=== PATIENT | male | born 2000 | race Caucasian/White ===

== ENCOUNTER 2019-04-14 23:27 | Emergency (ER) | payer BC, OTHER ==
[~2019-04-14] VITALS: Ht 188 cm; Wt 100.0 kg
--- NOTE | 2019-04-14 23:40 | NUR ---
assessment made. seen by PA. orders made.
[2019-04-14] MEDS ORDERED: LIDOCAINE-MPF 1%, 5ML ONE (23:44)
[2019-04-14] MEDS ORDERED: DIPH,PERTUSS(ACELL),TET VAC/PF 0.5 ML IM-VACC ONE (23:45)
[2019-04-15] MEDS ORDERED: LIDOCAINE 1%, 2ML INFIL ONE
[2019-04-15] MEDS ORDERED: DIPH,PERTUSS(ACELL),TET VAC/PF 0.5 ML IM-VACC ONE
--- NOTE | 2019-04-15 00:27 | NUR ---
[facility] [place] LUIS MANUEL [phone]
--- NOTE | 2019-04-15 00:28 | NUR ---
PT MOVED TO ER 4 AND WIIL BE KEPT UNTIL A RIDE ARRIVES.
[2019-04-15] MEDS ORDERED: ACETAMINOPHEN 500 MG TABLET ONE (00:46)
--- NOTE | 2019-04-15 00:50 | NUR ---
Report received and care assumed. Pt resting. Medicated per JAN. Pt is A&Ox4. Moving all extremities. VSS. Awaiting ride home. Call light in reach.
[2019-04-15] MEDS ORDERED: ACETAMINOPHEN 500 MG TABLET PO ONE (01:00)
--- NOTE | 2019-04-15 02:15 | NUR ---
Pt c/o nausea. Slightly tachycardic. No acute neuro changes noted. ERP to be notified of nausea. Still awaiting ride home.
[2019-04-15] MEDS ORDERED: ONDANSETRON ODT 4 MG ONE (02:31)
[2019-04-15] MEDS ORDERED: ONDANSETRON ODT 4 MG PO ONE (03:00)
--- NOTE | 2019-04-15 03:15 | NUR ---
Pt resting with eyes closed. Resp even and unlabored. No s/s of acute distress. Still awaiting ride. Per pt, they were on their way from [place]. Call light in reach.
--- NOTE | 2019-04-15 04:20 | NUR ---
No acute changes. Pt sleeping. Ride has not arrived yet. VSS.
--- NOTE | 2019-04-15 04:49 | NUR ---
received report from LAURENT Teran. patient resting comfortably. complaints made.
--- NOTE | 2019-04-15 05:07 | NUR ---
Report to Darrel MANCILLA.
--- NOTE | 2019-04-15 06:07 | NUR ---
patient sleeping, still waiting for a Ride home.
--- NOTE | 2019-04-15 06:56 | NUR ---
report to LAURENT Moulton.
[2019-04-15 07:17] VITALS: BP 115/75
--- NOTE | 2019-04-15 07:17 | NUR ---
Assumed care of pt. Pt aaox4, NAD at this time. Ride is getting close.
--- NOTE | 2019-04-15 07:36 | NUR ---
Mother Addie hinojosa. States she is less than 1hr from [place].
== END 2019-04-15 07:37 | disposition home or self-care (01) ==
LOC: ED 04-15 07:23
DX: S01.01XA Laceration without foreign body of scalp, initial encounter (principal); W19.XXXA Unspecified fall, initial encounter; Y93.89 Activity, other specified; Y92.89 Other specified places as the place of occurrence of the external cause; Y99.8 Other external cause status
CPT/HCPCS: 12001; 70450; 72125; 90471; 90715; 99284; J3490; Q0162